=== PATIENT | female | born 1990 | race Caucasian/White ===

== ENCOUNTER 2022-03-29 21:01 | Inpatient (IN) | payer OTHER ==
[~2022-03-29] VITALS: Ht 162.6 cm; Wt 85.9 kg
--- NOTE | 2022-03-29 21:00 | NUR ---
2100 - PATIENT AMBULATORY TO LDR5. PATIENT STATES SHE HAS BEEN BITA SINCE 1900. REPORTS CONTRACTIONS ARE 2-3 MINUTES APART. PATIENT DENIES LEAKING OF FLUID OR BLOODY SHOW. PATIENT ORIENTED TO ROOM. PATIENT CHANGES INTO GOWN. 2114 - PLAN OF CARE DISCUSSED AND PATIENT AGREEABLE TO PLAN. QUESTIONS ANSWERED. PATIENT ON MONITOR. 2119 - SVE PERFORMED BY THIS RN. 3-/-2. PLAN OF CARE REVIEWED. ORAL HYDRATION PROVIDED. CARE ONGOING.
[~2022-03-29 21:01] MED LIST: FERROUS SU325 MG/TAB PO; PRENATAL VITAMI1 TA5 PO; PYRIDOXINE PO; VITAMIN B 6 PO
[2022-03-29] MEDS ORDERED: ASPIRIN 81M81 MG/TA2 PO (21:27)
[2022-03-29 21:30] VITALS: BP 145/79; PULSE 106; TEMP 99
[2022-03-29 22:00] VITALS: PULSE 83
[2022-03-29 22:30] VITALS: PULSE 80
--- NOTE | 2022-03-29 23:00 | NUR ---
PATIENT OFF MONITOR FOR AMBULATION AND BRP. CARE ONGOING.
[2022-03-29 23:29] LABS: HEMOGLOBIN 12.6 g/dl (12.5-16.0); MEAN CELL VOLUME 91 fl (80.0-100.0); MEAN CORPUSCULAR HEMOGLOBIN 32 pg (27-31); MEAN CORPUSCULAR HGB CONC 35 g/dl (33.0-37.0); MEAN PLATELET VOLUME 10.6 fl (7.4-10.4); PLATELET COUNT 261 K/mm3 (130-400); RED BLOOD COUNT 3.98 M/mm3 (4.10-5.30); REDCELL DISTRIBUTION WIDTH-CV 12.4 % (11.5-14.5)
--- NOTE | 2022-03-29 23:30 | NUR ---
TOCO TRACING POORLY. TOCO ADJUSTED. CARE ONGOING.
[2022-03-29 23:47] LABS: BAND 10 % (0-10); LYMPHOCYTE 13 % (20.0-51.0); NEUTROPHILS 74 % (42.0-75.2)
[2022-03-29 23:48] LABS: PLATELET ESTIMATE NORMAL (NORMAL)
[2022-03-30] VITALS (35 sets, daily range): BP systolic 103–155; BP diastolic 52–83; PULSE 16–126; TEMP 97.8–100.4
--- NOTE | 2022-03-30 | NUR ---
2350 - EULALIA FOSTER AT BEDSIDE FOR EPIDURAL PLACEMENT. 2355 - SINGLE SHOT GIVEN BY FINANCIAL ADMINISTRATIVE ASSISTANT. PATIENT TOLERATED PROCEDURE WELL. CARE ONGOING.
--- NOTE | 2022-03-30 00:05 | NUR ---
LATE DECELS NOTED. PATIENT REPOSITIONED. EFM TRACING IMPROVED WITH REPOSITIONING. CARE ONGOING.
--- NOTE | 2022-03-30 02:00 | NUR ---
FHT's to 90's with maternal position change.
--- NOTE | 2022-03-30 07:30 | NUR ---
0730: ON UNIT, AT BEDSIDE AT THIS TIME, SVE COMPLETE, ORDER TO BEGIN PUSHING. MATERNAL TEMP 100.1 AT THIS TIME. ALL OTHER VITAL SIGNS STABLE. 0810: TEMP 100.4, VORB FOR IV AMPICILLIN, GENTAMYCIN AND PO TYLENOL AT THIS TIME PER . MEDS GATHERED AND ADMINISTERED. SEE EMAR. 0850: TACHYCARDIA PRESENT AT THIS TIME. RECURRENT VARIABLE INTO THE 80'S WITH CONTRACTIONS. PT CONTINUES TO BE FEBRILE. DISCUSSES OPTION OF VACUUM VS.FORCEP DELIVERY. PT AGREEABLE TO ATTEMPT VACUUM. 0857: VACUUM PLACED ON HEAD PER . PT COACHED TO BEGIN PUSHING WITH NEXT CONTRACTION. STRONG, EFFICIENT PUSHING EFFORTS WITH VACUUM ASSIST AT THIS TIME, NO POP OFFS PRESENT THROUGHOUT THIS ROUND OF PUSHING 0858: VACUUM ASSISTED VAGINAL DELIVERY AT THIS TIME OF VIABLE MALE INFANT. BODY CORD AROUND FEET AND ANKLES NOTED. PLACED ON MATERNAL ABDOMEN, CORD CLAMPED X2 AND CUT BY FOB. CARE ASSUMED BY INDIO ESPITIA RN. CORD BLOOD AND GASES OBTAINED BY AND SENT TO LAB FOR REVIEW. PERINEUM REMAINS INTACT FOLLOWING DELIVERY. 0906: OF PLACENTA. PLACENTA SENT TO PATHOLOGY FOR DX.CHORIO. FUNDUS FIRM AT UMBILICUS. LOCHIA SCANT, NO CLOTS NOTED. EBL 200CC PER FOLLOWING DELIVERY. PT'S VITAL SIGNS STABLE. MATERNAL TEMP 99.9 FOLLOWING PO TYLENOL. WILL CONTINUE TO MONITOR.
--- NOTE | 2022-03-30 18:45 | NUR ---
Report recieved. Sitting up in bed . POC reviewed and whiteboard updated.
[2022-03-31 04:13] VITALS: BP 100/54; PULSE 66; TEMP 97.9
[2022-03-31 05:13] LABS: HEMATOCRIT 27.9 % (37.0-47.0); HEMOGLOBIN 9.4 g/dl (12.5-16.0)
[2022-03-31] MEDS ORDERED: IBU600 MG PO (07:11)
[2022-03-31 08:00] VITALS: BP 104/56; PULSE 63; TEMP 97.7
--- NOTE | 2022-03-31 11:05 | NUR ---
Initial visit attempt; Nurse with patient, Stake Setter left card of congratulations and God's blessings for the of their son and information offering [facility] at our hospital.
[2022-03-31 15:56] VITALS: BP 116/64; PULSE 64; TEMP 97.8
--- NOTE | 2022-03-31 18:10 | NUR ---
Report recieved. Sitting on bench with visitors at bedside. POC reviewed and whiteboard updated. Questions invited at thsi time.
[2022-03-31 20:00] VITALS: BP 129/64; PULSE 81; TEMP 97.5
[2022-04-01 08:30] VITALS: BP 114/60; PULSE 64; TEMP 97.8
[2022-04-01 09:54] LABS: MEAN CELL VOLUME 94 fl (80.0-100.0); MEAN CORPUSCULAR HGB CONC 35 g/dl (33.0-37.0); MEAN PLATELET VOLUME 10.6 fl (7.4-10.4); PLATELET COUNT 183 K/mm3 (130-400); RED BLOOD COUNT 3.02 M/mm3 (4.10-5.30); REDCELL DISTRIBUTION WIDTH-CV 12.8 % (11.5-14.5)
[2022-04-01 10:06] LABS: HEMATOCRIT 28.4 % (37.0-47.0); HEMOGLOBIN 9.8 g/dl (12.5-16.0); MEAN CORPUSCULAR HEMOGLOBIN 32 pg (27-31)
[2022-04-01] MEDS ORDERED: MOTRIN 600600 MG/TAB PO (11:45)
== END 2022-04-01 14:15 | disposition home or self-care (01) | DRG 805 ==
LOC: LDRO 21:01 → OB 22:51 → LDR 22:51 → OB 03-30 11:45
PROVIDERS: Obstetrics & Gynecology; Student in an Organized Health Care Education/Training Program; ADMIT Obstetrics & Gynecology
PROC: 10D07Z6 Extraction of Products of Conception, Vacuum, Via Natural or Artificial Opening (ICD-10-PCS; principal; 2022-03-30)
DX: O34.13 Maternal care for benign tumor of corpus uteri, third trimester (principal); O41.1230 Chorioamnionitis, third trimester, not applicable or unspecified; Z37.0 Single live birth; O76 Abnormality in fetal heart rate and rhythm complicating labor and delivery; D25.9 Leiomyoma of uterus, unspecified; O32.2XX0 Maternal care for transverse and oblique lie, not applicable or unspecified; O99.013 Anemia complicating pregnancy, third trimester; D64.9 Anemia, unspecified; Z14.1 Cystic fibrosis carrier; Z3A.38 38 weeks gestation of pregnancy
CPT/HCPCS: J0290; J1580; J2590; J7120

== ENCOUNTER 2022-06-14 13:50 | Emergency (ER) | payer OTHER ==
[~2022-06-14] VITALS: Ht 162.6 cm; Wt 72.3 kg
[~2022-06-14 13:50] MED LIST changes: +ASPIRIN 81M81 MG/TA2 PO; +IBU600 MG PO; +MOTRIN 600600 MG/TAB PO
[2022-06-14 14:10] VITALS: TEMP 98.5
[2022-06-14 16:35] LABS: BASO % 0.3 % (0.0-2.0); EOS # 0.1 K/mm3 (0.0-0.7); EOS % 0.9 % (0.0-4.0); GRAN # 4.3 K/mm3 (1.4-6.5); GRAN % 56.8 % (42.2-75.2); HEMOGLOBIN 11.7 g/dl (12.5-16.0); LYMPH # 2.6 K/mm3 (1.2-3.4); LYMPH % 34.7 % (20.0-51.0); MEAN CELL VOLUME 91 fl (80.0-100.0); MEAN CORPUSCULAR HEMOGLOBIN 31 pg (27-31); MEAN CORPUSCULAR HGB CONC 34 g/dl (33.0-37.0); MEAN PLATELET VOLUME 9.8 fl (7.4-10.4); MONO # 0.5 K/mm3 (0.1-0.6); MONO % 6.9 % (1.7-9.3); PLATELET COUNT 255 K/mm3 (130-400); RED BLOOD COUNT 3.81 M/mm3 (4.10-5.30); REDCELL DISTRIBUTION WIDTH-CV 11.8 % (11.5-14.5)
[2022-06-14 16:40] LABS: HEMATOCRIT 34.8 % (37.0-47.0)
[2022-06-14 16:48] LABS: ALBUMIN 4.1 gm/dL (3.5-5.0); BILIRUBIN,TOTAL 0.3 mg/dL (0.2-1.2); CALCIUM 9.5 mg/dL (8.4-10.2); CREATININE, serum 0.8 mg/dL (0.57-1.11); POTASSIUM 3.8 mmol/L (3.5-4.5); TOTAL PROTEIN 7.4 gm/dL (6.2-8.1)
[2022-06-14 18:18] VITALS: BP 123/65; PULSE 54
== END 2022-06-14 18:18 | disposition home or self-care (01) ==
LOC: COL.ER 13:50
PROVIDERS: Emergency Medicine
DX: N93.9 Abnormal uterine and vaginal bleeding, unspecified (principal); Z28.310 Unvaccinated for COVID-19
CPT/HCPCS: J7030